=== PATIENT | female | born 2000 | race Caucasian/White ===

== ENCOUNTER → 2019-04-14 | Emergency (ER) | payer SELFPAY ==
[~2019-04-14] VITALS: Ht 177.8 cm; Wt 89.8 kg
[~2019-04-14] MED LIST: ACETAMINOPHEN 500 MG TAB (TYLENOL) PO ONE; KETOROLAC 30 MG/ML VIAL IVP ONE; LACTATED RINGERS 1,000 ML IV ONE; PROCHLORPERAZINE 10 MG/2ML INJ (COMPAZINE) IV ONE; diphenhydrAMINE 25 MG TAB (BENADRYL) PO ONE
--- NOTE | 2019-04-14 02:27 | NUR ---
pt here with " fiance". pt alert [facility] 15. pt c/o h/a rating 9 1/2 x 6-7 hrs ago. associated with shaking and nausea. denies v/d. pt has h/o h/as. pt also points to and c/o pelvic / bladder area pain. h/a worse. pt also c/o dizziness. pt denies dypnea and no acute sighns of dysnea notedlungs cta bilaterally. abd soft nondistended tender to palpation all quads except ruq. done donna pt at 0234.
--- NOTE | 2019-04-14 02:48 | ED Headache ---
General Stated Complaint: MIGRAINE NAUSEA Source: patient Exam Limitations: no limitations History of Present Illness Date Seen by Provider: Apr 14, 2019 Time Seen by Provider: 02:37 Initial Comments Patient presents to ER by private conveyance with her significant other chief complaint she's having a migraine headache. She has a history of migraine headaches. She says it is universally, no photosensitivity or aura. She has a little bit of nausea no vomiting. She been going on for 6 hours and she has not taken anything for it. She does not use triptan's. No allergies to medicines. He doesn't know she's . Does not take control. Allergies and Home Medications Allergies Coded Allergies: No Known Drug Allergies (Unverified , 04/14/19) Patient Home Medication List Home Medication List Reviewed: Yes Review of Systems Review of Systems Constitutional: No chills, No diaphoresis Eyes: Denies Blindness, Denies Blurred Vision Ears, Nose, Mouth, Throat: denies ear pain, denies ear discharge Respiratory: No cough, No short of breath Cardiovascular: No chest pain, No edema Past [id number] Hx Patient Social History Alcohol Use: Denies Use Recreational Drug Use: No Smoking Status: Never a Smoker Recent Foreign Travel: No Contact w/Someone Who Travel: No Physical Exam Vital Signs Capillary Refill : Height, Weight, BMI Height: '" Weight: lbs. oz. kg; BMI Method: General Appearance: WD/WN, no apparent distress HEENT: PERRL/EOMI, normal ENT inspection, TMs normal, pharynx normal Neck: non-tender, normal inspection Cardiovascular: normal peripheral pulses, regular rate, rhythm Respiratory: no respiratory distress, no accessory muscle use Gastrointestinal: normal bowel sounds, non tender, soft Extremities: non-tender, normal inspection, no pedal edema Psychiatric: alert, oriented x 3 Progress/Results/Core Measures Results/Orders My Orders Orders - ANJELICA CORTES Ketorolac Injection (Toradol Injection) (04/14/19 02:45) Ed Iv/Invasive Line Start (04/14/19 02:35) Lactated Ringers (Lr 1000 Ml Iv Solution (04/14/19 02:35) Acetaminophen Tablet (Tylenol Tablet) (04/14/19 02:45) Prochlorperazine Injection (Compazine In (04/14/19 02:45) Diphenhydramine Tablet (Benadryl Tablet) (04/14/19 02:45) Progress Progress Note : Time: 02:56 Progress Note Toradol, Tylenol, Compazine, Benadryl. The patient requested a bag of IV fluids. Departure Impression Primary Impression: Migraine headache Qualified Codes: G43.009 - Migraine without aura, not intractable, without status migrainosus Disposition: HOME, SELF-CARE Condition: Stable Departure-Patient Inst. Decision time for Depature: 03:01 Referrals: [facility] [place] (PCP) Primary Care Physician Patient Instructions: Migraine Headache (DC) Add. Discharge Instructions: Tylenol 1000 mg every 8 hours as needed for headache. Ibuprofen 800 mg every 8 hours as needed for pain. Get some sleep and drink lots of fluids. ANJELICA CORTES J Apr 14, 2019 02:48
--- NOTE | 2019-04-14 03:40 | NUR ---
pt asleep awoke to alert [facility] 15. pt denies h/a. denies nausea and no v/d noted in er visit thus far. fiance was sleeping as well. [address] says no need to have her finish the bolus.
--- NOTE | 2019-04-14 03:45 | NUR ---
dr gastelum with d/c hr
--- NOTE | 2019-04-14 03:50 | NUR ---
d/c instructions to pt. told to read all papers. no scripts given. pt left ambulatory with fiance. pt knows f/u. i went over the handtyped by tomi information on the chart. iv d/cd by me prior to d/c.
== END | disposition home or self-care (01) ==
LOC: ER 02:24
DX: G43.909 Migraine, unspecified, not intractable, without status migrainosus (principal)
CPT/HCPCS: 84703; 96374; 96375; 99283

== ENCOUNTER → 2020-01-23 | Outpatient (CLI) | payer OTHER ==
[~2020-01-23] MED LIST changes: -ACETAMINOPHEN 500 MG TAB (TYLENOL) PO ONE; +CATHETER FLUSH 10 ML SYR IV PRN; +HOLD METFORMIN - RECEIVED CONTRAST 20 ML VIAL IV SCH; +IOHEXOL 350 MG/ML 100 ML (OMNIPAQUE 350) VIAL IV ONE; -KETOROLAC 30 MG/ML VIAL IVP ONE; -LACTATED RINGERS 1,000 ML IV ONE; +NS 100 ML (IVPB) BAG IV ONE; -PROCHLORPERAZINE 10 MG/2ML INJ (COMPAZINE) IV ONE; -diphenhydrAMINE 25 MG TAB (BENADRYL) PO ONE
--- NOTE | 2020-01-23 15:18 | Diagnostic Imaging Report ---
PROCEDURE: CT abdomen and pelvis with contrast. TECHNIQUE: Multiple contiguous axial images were obtained through the abdomen and pelvis after administration of intravenous contrast. Auto Exposure Controls were utilized during the CT exam to meet ALARA standards for radiation dose reduction. INDICATION: Right lower quadrant pain with body aches and nausea and vomiting. COMPARISON: No prior studies are available for comparison. FINDINGS: The lung bases are clear. No discrete liver mass is detected. Gallbladder is unremarkable. No biliary ductal dilatation is seen. Pancreas and spleen are unremarkable. No adrenal mass is detected. Kidneys are unremarkable. Aorta is nonaneurysmal. The small and large bowel loops are normal in caliber. There is no obstruction. The appendix is visualized in the right lower quadrant and appears normal. There are several small lymph nodes in the right lower quadrant and findings may be owing to mesenteric adenitis. No free fluid or fluid collection is seen. The bladder, uterus, and ovaries are unremarkable. Bony structures are nonacute. IMPRESSION: 1. No CT evidence of acute appendicitis. 2. Mildly prominent lymph nodes in the right lower quadrant, perhaps on the basis of mesenteric adenitis. Dictated by: Dictated on workstation # [id number]
== END ==
LOC: RAD 14:03
PROVIDERS: ATTEND Nurse Practitioner Primary Care
DX: R10.31 Right lower quadrant pain (principal)
CPT/HCPCS: 74177